=== PATIENT | male | born 1985 | race Caucasian/White ===

== ENCOUNTER → 2018-01-12 | Outpatient (CLI) | payer OTHER ==
[~2018-01-12] MED LIST: Z.0.NO CURRENT MEDS
[2018-01-12 09:43] LABS: WET PREP SPERM RARE/NON-MOTILE /HPF (NONE SEEN)
== END ==
LOC: CLAB 08:43
PROVIDERS: ATTEND Urology
DX: Z30.2 Encounter for sterilization (principal)
CPT/HCPCS: 89321